=== PATIENT | male | born 1975 | race Caucasian/White ===

== ENCOUNTER 2017-01-23 13:51 | Inpatient (IN) | payer OTHER ==
[2017-01-23 16:32] VITALS: BMI 27.8
--- NOTE | 2017-01-23 17:19 | HP ---
CIWA Score - CIWA Score Nausea/Vomitin Muscle Tremors: 4-Moderate,w/Arms Extend Anxiety: 4-Mod. Anxious/Guarded Agitation: 4-Moderately Restless Paroxysmal Sweats: 1-Minimal Palms Moist Orientation: 1-Uncertain about Date Tacttile Disturbances: 2-Mild Itch/Numbness/Burn Auditory Disturbances: 0-None Visual Disturbances: 0-None Headache: 3-Moderate CIWA-Ar Total Score: 22 Admission ROS S - HPI Chief Complaint: Alcohol withdrawal symptoms Allergies/Adverse Reactions: Allergies Allergy/AdvReac Type Severity Reaction Status Date / Time No Known Allergies Allergy Verified 01/23/17 17:08 History of Present Illness: 41 years male with a long history of alcohol dependence is admitted for alcohol detox. Patient reports previous detox at [facility] [place]. Denies significant period of sobriety. Patient reports history of Hyperlipidemia, Bipolar disorder and Depression. Denies suicidal ideation at this time. - Ebola screening Have you traveled outside of the country in the last 21 days: No Have you had contact with anyone from an Ebola affected area: No Have you been sick,other than usual withdrawal symptoms: No Do you have a fever: No - Review of Systems Constitutional: Loss of Appetite, Night Sweats, Changes in sleep, Unintentional Wgt. Loss EENT: reports: Blurred Vision Respiratory: reports: Productive cough (brwnish phlegm) Cardiac: reports: No Symptoms Reported GI: reports: Nausea, Poor Appetite : reports: No Symptoms Reported Musculoskeletal: reports: Back Pain, Joint Pain, Muscle Weakness, Neck Pain, Other (upper back) Integumentary: reports: Flushing Neuro: reports: Headache, Tingling, Tremors, Weakness Endocrine: reports: Flushing Hematology: reports: No Symptoms Reported Psychiatric: reports: Mood/Affect Appropiate, Orientated x3 Other Systems: Reviewed and Negative Patient History - Patient Medical History Hx Anemia: No Hx Asthma: No Hx Chronic Obstructive Pulmonary Disease (COPD): No Hx Cancer: No Hx Cardiac Disorders: No Hx Congestive Heart Failure: No Hx Hypertension: No Hx Hypercholesterolemia: No Hx Pacemaker: No HX Cerebrovascular Accident: No Hx Seizures: No Hx Diabetes: No Hx Gastrointestinal Disorders: No Hx Liver Disease: No Hx Genitourinary Disorders: No Hx Sexually Transmitted Disorders: No Hx Renal Disease (ESRD): No Hx Thyroid Disease: No Hx Human Immunodeficiency Virus (HIV): No (Negative 2017) Hx Hepatitis C: No (Negative 2017) Hx Depression: Yes Hx Suicide Attempt: No (Denies suicidal ideation) Hx Bipolar Disorder: Yes Hx Schizophrenia: No - Patient Surgical History Past Surgical History: Yes Hx Neurologic Surgery: No Hx Cataract Extraction: No Hx Cardiac Surgery: No Hx Lung Surgery: No Hx Abdominal Surgery: No Hx Appendectomy: No Hx Cholecystectomy: No Hx Genitourinary Surgery: No Hx Orthopedic Surgery: Yes (left zigomatic fx) Anesthesia Reaction: No - PPD History Previous Implant?: Yes ([employer] [place]) Documented Results: Negative w/proof PPD to be Administered?: Yes - Reproductive History Patient is a Female of Child Bearing Age (11 -55 yrs old): No (Male) - Smoking Cessation Smoking history: Current every day smoker Have you smoked in the past 12 months: Yes Aproximately how many cigarettes per day: 20 Hx Chewing Tobacco Use: No Initiated information on smoking cessation: Yes 'Breaking Loose' booklet given: 01/23/17 - Substance & Tx. History Hx Alcohol Use: Yes (Wine) Hx Substance Use: Yes (oxycodone) Substance Use Type: Alcohol, Opiates Hx Substance Use Treatment: Yes ([facility] August-jan 21 2017) - Substances Abused Alcohol Route: Oral Frequency: Daily Amount used: 6-10 four locos Age of first use: 22 Date of Last Use: 01/22/17 Family Disease History - Family Disease History Family Disease History: Heart Disease: Father (Depression, ), Other: Father, Mother (Depression) Admission Physical Exam S - Vital Signs Vital Signs: Vital Signs - 24 hr 01/23/17 16:26 Temperature 97.1 F L Pulse Rate 82 Respiratory 20 Rate Blood Pressure 124/73 - Physical General Appearance: Yes: Moderate Distress, Tremorous, Irritable, Anxious HEENTM: Yes: EOMI, Normal Voice, AV Respiratory: Yes: Lungs Clear, Normal Breath Sounds, No Respiratory Distress Neck: Yes: Supple Breast: Yes: Breast Exam Deferred Cardiology: Yes: Regular Rhythm, Regular Rate, S1, S2 Abdominal: Yes: Normal Bowel Sounds, Soft Genitourinary: Yes: Within Normal Limits Musculoskeletal: Yes: Back pain, Muscle Pain Extremities: Yes: Tremors Neurological: Yes: Fully Oriented, Alert, Normal Mood/Affect Integumentary: Yes: Dry Lymphatic: Yes: Within Normal Limits - Diagnostic (1) Alcohol dependence with uncomplicated withdrawal Current Visit: Yes Status: Acute (2) Bipolar 1 disorder Current Visit: Yes Status: Chronic (3) Depression Current Visit: Yes Status: Chronic Cleared for Admission [facility] - Detox or Rehab [facility] Level of Care: Medically Managed Detox Regimen/Protocol: Librium S Breath Alcohol Content Breath Alcohol Content: 0 Urine Drug Screen - Results Drug Screen Negative: No Urine Drug Screen Results: TCA-Tricyclic Antidepress
[2017-01-23] MEDS ORDERED: ACETAMINOPHEN 325 MG TABLET (FP) PO PRN (17:43)
[2017-01-23] MEDS ORDERED: guaiFENesin/D-METHORPHAN HB 10 ML UNIT-DOSE CUPS PO PRN (17:43)
[2017-01-23] MEDS ORDERED: NICOTINE POLACRILEX 2 MG GUM BC PRN (17:43)
[2017-01-23] MEDS ORDERED: MAGNESIUM HYDROX 2400MG/30ML ORAL SUSPENSION 30 ML CUP PO PRN (17:43)
[2017-01-23] MEDS ORDERED: IBUPROFEN 400 MG TABLET (FP) PO PRN (17:43)
[2017-01-23] MEDS ORDERED: MENTHOL/PHENOL 1 EACH UD MM PRN (17:43)
[2017-01-23] MEDS ORDERED: hydrOXYzine PAMOATE 50 MG CAPSULE (FP) PO PRN (17:43)
[2017-01-23] MEDS ORDERED: MAG HYDROX/AL HYDROX/SIMETH 30 ML UNIT-DOSE CUP PO PRN (17:43)
[2017-01-23] MEDS ORDERED: P-EPHED 60MG/TRIPROLIDI 2.5MG TABLET PO PRN (17:43)
[2017-01-23] MEDS ORDERED: MAGNESIUM CITRATE 300 ML BOTTLE PO PRN (17:43)
[2017-01-23] MEDS ORDERED: chlordiazePOXIDE HCL 25 MG CAPSULE PO PRN (17:43)
[2017-01-23] MEDS ORDERED: LOPERAMIDE HCL 2 MG CAPSULE PO PRN (17:43)
[2017-01-23 22:12] LABS: URINE APPEARANCE CLEAR; URINE BILIRUBIN NEGATIVE (NEGATIVE); URINE BLOOD NEGATIVE (NEGATIVE); URINE COLOR YELLOW; URINE GLUCOSE (UA) NEGATIVE (NEGATIVE); URINE KETONE TRACE (NEGATIVE); URINE NITRITE NEGATIVE (NEGATIVE); URINE PROTEIN NEGATIVE (NEGATIVE); URINE UROBILINOGEN NEGATIVE mg/dL (0.2-1.0)
[2017-01-23] MEDS: THIAMINE HCL 100 MG TABLET (FP) PO SCH (22:14)
[2017-01-23] MEDS: ATORVASTATIN CA 10 MG TABLET (FP) PO SCH (22:14)
[2017-01-23] MEDS: diphenhydrAMINE HCL 50 MG CAPSULE PO PRN (22:14)
[2017-01-23] MEDS: chlordiazePOXIDE HCL 25 MG CAPSULE PO SCH (22:14)
[2017-01-24] MEDS: chlordiazePOXIDE HCL 25 MG CAPSULE PO SCH ×4 (05:31→22:12)
[2017-01-24 09:01] LABS: URINE LEUK ESTERASE Negative (NEGATIVE)
[2017-01-24 10:03] LABS: MCH 29.5 pg (25.7-33.7); MCHC 33.8 g/dl (32.0-35.9); MEAN CELL VOLUME 87.2 fl (80-96); MEAN PLT VOLUME 7.1 fl (7.5-11.1); PLATELET COUNT 297 K/MM3 (134-434); RDW 13.7 % (11.9-15.9); WHITE BLOOD COUNT 5.7 K/mm3 (4.0-10.0)
[2017-01-24] MEDS: PRENATAL VITAMINS W/ FOLIC ACID TABLET (FP) PO SCH (10:23)
[2017-01-24] MEDS: NICOTINE 14 MG/24 HOURS TOPICAL PATCH TD SCH (10:23)
[2017-01-24 10:24] LABS: ALBUMIN 3.3 g/dl (3.4-5.0); ALK PHOS 90 U/L (45-117); ANION GAP 8 (8-16); BILIRUBIN,TOTAL 0.5 mg/dL (0.2-1.0); CALCIUM 8.5 mg/dL (8.5-10.1); CO2 28 mmol/L (21-32); CREATININE 0.7 mg/dL (0.7-1.3); GLUCOSE,RANDOM 91 mg/dL (74-106); SGOT/AST 20 U/L (15-37); SGPT/ALT 35 U/L (12-78); TOT PROT 6.1 g/dl (6.4-8.2)
[2017-01-24] MEDS ORDERED: FLU VACCINE QUAD 60 MCG/0.5 ML (MDV 17-18) IM ONE (12:00)
--- NOTE | 2017-01-24 12:20 | CONSULT ---
[facility] Psychiatric Consult - Data Date of interview: 01/24/17 Admission source: [facility] Identifying data: First admission to [facility] for this 41 y/o male seeking detox treatment on for alcohol and opiate dependence.Patient is single,a father of one,homeless,unemployed and supported on food stamps. Substance Abuse History: Patient admits to an extensive history of opiate + alcohol abuse.Confirms [facility] report. Smoking history: Current every day smoker. Have you smoked in the past 12 months: Yes. Aproximately how many cigarettes per day: 20. Hx Chewing Tobacco Use: No. Initiated information on smoking cessation: Yes. 'Breaking Loose' booklet given: 01/23/17. - Substance & Tx. History. Hx Alcohol Use: Yes (Wine). Hx Substance Use: Yes (oxycodone). Substance Use Type: Alcohol, Opiates. Hx Substance Use Treatment: Yes ([facility] August-jan 21 2017). - Substances Abused. Alcohol. Route: Oral. Frequency: Daily. Amount used: 6-10 four locos. Age of first use: 22. Date of Last Use: 01/22/17 Medical History: History of facial surgery (fracture of zygomatic bone sustained in a kickboxing contest).Plate in place.Additional history of chronic back pain and dyslipidemia. Psychiatric History: Patient admits to a brief psychiatric hospitalization,five months ago,at a facility in [facility].Diagnosed with MDD and ADD.Mr Spain indicates that he used to be on psychostimulant medications years ago.Recently during his stay at [facility],he was reportedly prescribed xanax,seroquel, prozac and trazodone.Patient declines to get back on these drugs." I don't like the way they make me feel." No repprted history of suicide attempts. Physical/Sexual Abuse/Trauma History: Patient denies history of abuse. Additional Comment: Urine Drug Screen Results: TCA-Tricyclic Antidepressant.Noted. Mental Status Exam - Mental Status Exam Alert and Oriented to: Time, Place, Person Cognitive Function: Good Patient Appearance: Well Groomed Mood: Hopeful, Euthymic Affect: Appropriate, Normal Range Patient Behavior: Appropriate, Cooperative Speech Pattern: Clear Voice Loudness: Normal Thought Process: Intact, Goal Oriented Thought Disorder: Not Present Hallucinations: Denies Suicidal Ideation: Denies Homicidal Ideation: Denies Insight/Judgement: Poor Sleep: Well Appetite: Good Muscle strength/Tone: Normal Gait/Station: Normal Psychiatric Findings - Problem List ([place] 1, 2,3) (1) Alcohol dependence with uncomplicated withdrawal Current Visit: Yes Status: Acute (2) Nicotine dependence Current Visit: Yes Status: Acute (3) Substance induced mood disorder Current Visit: Yes Status: Acute - Initial Treatment Plan Initial Treatment Plan: Psychoeducation.Detoxification in progress.Mr Spain has made the decision to abstain from any psychotropic drugs other than drugs indicated for detoxification purposes.Observation.
--- NOTE | 2017-01-24 12:28 | PN ---
[facility] CIWA - CIWA Score Nausea/Vomitin-No Nausea/No Vomiting Muscle Tremors: 4-Moderate,w/Arms Extend Anxiety: 4-Mod. Anxious/Guarded Agitation: 4-Moderately Restless Paroxysmal Sweats: 1-Minimal Palms Moist Orientation: 0-Oriented Tacttile Disturbances: 3-Moderate Itch/Numb/Burn Auditory Disturbances: 0-None Visual Disturbances: 0-None Headache: 0-None Present CIWA-Ar Total Score: 16 BHS Progress Note (SOAP) Subjective: ANXIETY,NAUSEA,SWEATS,SLIGHT TREMORS. Objective: 01/24/17 12:27 Vital Signs Temperature 98.1 F 01/24/17 10:05 Pulse Rate 80 01/24/17 10:05 Respiratory Rate 18 01/24/17 10:05 Blood Pressure 145/72 01/24/17 10:05 O2 Sat by Pulse Oximetry (%) Laboratory Last Values WBC 5.7 K/mm3 (4.0-10.0) 01/24/17 07:00 RBC 4.37 M/mm3 (4.00-5.60) 01/24/17 07:00 Hgb 12.9 GM/dL (11.7-16.9) 01/24/17 07:00 Hct 38.1 % (35.4-49) 01/24/17 07:00 MCV 87.2 fl (80-96) 01/24/17 07:00 MCH 29.5 pg (25.7-33.7) 01/24/17 07:00 MCHC 33.8 g/dl (32.0-35.9) 01/24/17 07:00 RDW 13.7 % (11.9-15.9) 01/24/17 07:00 Plt Count 297 K/MM3 (134-434) 01/24/17 07:00 MPV 7.1 fl (7.5-11.1) L 01/24/17 07:00 Sodium 140 mmol/L (136-145) 01/24/17 07:00 Potassium 4.2 mmol/L (3.5-5.1) 01/24/17 07:00 Chloride 104 mmol/L (98-107) 01/24/17 07:00 Carbon Dioxide 28 mmol/L (21-32) 01/24/17 07:00 Anion Gap 8 (8-16) 01/24/17 07:00 BUN 12 mg/dL (7-18) 01/24/17 07:00 Creatinine 0.7 mg/dL (0.7-1.3) 01/24/17 07:00 Creat Clearance w eGFR > 60 (>60) 01/24/17 07:00 Random Glucose 91 mg/dL (74-106) 01/24/17 07:00 Calcium 8.5 mg/dL (8.5-10.1) 01/24/17 07:00 Total Bilirubin 0.5 mg/dL (0.2-1.0) 01/24/17 07:00 AST 20 U/L (15-37) 01/24/17 07:00 ALT 35 U/L (12-78) 01/24/17 07:00 Alkaline Phosphatase 90 U/L (45-117) 01/24/17 07:00 Total Protein 6.1 g/dl (6.4-8.2) L 01/24/17 07:00 Albumin 3.3 g/dl (3.4-5.0) L 01/24/17 07:00 Urine Color Yellow 01/23/17 21:45 Urine Appearance Clear 01/23/17 21:45 Urine pH 7.0 (5.0-8.0) 01/23/17 21:45 Ur Specific [place] 1.024 (1.001-1.035) 01/23/17 21:45 Urine Protein Negative (NEGATIVE) 01/23/17 21:45 Urine Glucose (UA) Negative (NEGATIVE) 01/23/17 21:45 Urine Ketones Trace (NEGATIVE) H 01/23/17 21:45 Urine Blood Negative (NEGATIVE) 01/23/17 21:45 Urine Nitrite Negative (NEGATIVE) 01/23/17 21:45 Urine Bilirubin Negative (NEGATIVE) 01/23/17 21:45 Urine Urobilinogen Negative mg/dL (0.2-1.0) 01/23/17 21:45 Ur Leukocyte Esterase Negative (NEGATIVE) 01/23/17 21:45 RPR Titer Nonreactive (NONREACTIVE) 01/24/17 07:00 Assessment: 01/24/17 12:27 WITHDRAWAL SX Plan: CONTINUE DETOX
[2017-01-24] MEDS: THIAMINE HCL 100 MG TABLET (FP) PO SCH (22:12)
[2017-01-24] MEDS: ATORVASTATIN CA 10 MG TABLET (FP) PO SCH (22:12)
[2017-01-24] MEDS: diphenhydrAMINE HCL 50 MG CAPSULE PO PRN (22:13)
[2017-01-25] MEDS: chlordiazePOXIDE HCL 25 MG CAPSULE PO SCH ×3 (05:34→17:06)
[2017-01-25] MEDS: NICOTINE 14 MG/24 HOURS TOPICAL PATCH TD SCH (10:11)
[2017-01-25] MEDS: PRENATAL VITAMINS W/ FOLIC ACID TABLET (FP) PO SCH (10:12)
--- NOTE | 2017-01-25 10:38 | PN ---
[facility] CIWA - CIWA Score Nausea/Vomitin-Int. Nausea w/Dry Heave Muscle Tremors: 3 Anxiety: 4-Mod. Anxious/Guarded Agitation: 3 Paroxysmal Sweats: 1-Minimal Palms Moist Orientation: 0-Oriented Tacttile Disturbances: 1-Very Mild Itch/Numbness Auditory Disturbances: 0-None Visual Disturbances: 0-None Headache: 0-None Present CIWA-Ar Total Score: 16 BHS Progress Note (SOAP) Subjective: ANXIETY,SLIGHT TREMORS,NAUSEA,FATIGUE. Objective: 01/25/17 10:37 Vital Signs Temperature 96.1 F L 01/25/17 09:00 Pulse Rate 87 01/25/17 09:00 Respiratory Rate 18 01/25/17 09:00 Blood Pressure 134/85 01/25/17 09:00 O2 Sat by Pulse Oximetry (%) Laboratory Last Values WBC 5.7 K/mm3 (4.0-10.0) 01/24/17 07:00 RBC 4.37 M/mm3 (4.00-5.60) 01/24/17 07:00 Hgb 12.9 GM/dL (11.7-16.9) 01/24/17 07:00 Hct 38.1 % (35.4-49) 01/24/17 07:00 MCV 87.2 fl (80-96) 01/24/17 07:00 MCH 29.5 pg (25.7-33.7) 01/24/17 07:00 MCHC 33.8 g/dl (32.0-35.9) 01/24/17 07:00 RDW 13.7 % (11.9-15.9) 01/24/17 07:00 Plt Count 297 K/MM3 (134-434) 01/24/17 07:00 MPV 7.1 fl (7.5-11.1) L 01/24/17 07:00 Sodium 140 mmol/L (136-145) 01/24/17 07:00 Potassium 4.2 mmol/L (3.5-5.1) 01/24/17 07:00 Chloride 104 mmol/L (98-107) 01/24/17 07:00 Carbon Dioxide 28 mmol/L (21-32) 01/24/17 07:00 Anion Gap 8 (8-16) 01/24/17 07:00 BUN 12 mg/dL (7-18) 01/24/17 07:00 Creatinine 0.7 mg/dL (0.7-1.3) 01/24/17 07:00 Creat Clearance w eGFR > 60 (>60) 01/24/17 07:00 Random Glucose 91 mg/dL (74-106) 01/24/17 07:00 Calcium 8.5 mg/dL (8.5-10.1) 01/24/17 07:00 Total Bilirubin 0.5 mg/dL (0.2-1.0) 01/24/17 07:00 AST 20 U/L (15-37) 01/24/17 07:00 ALT 35 U/L (12-78) 01/24/17 07:00 Alkaline Phosphatase 90 U/L (45-117) 01/24/17 07:00 Total Protein 6.1 g/dl (6.4-8.2) L 01/24/17 07:00 Albumin 3.3 g/dl (3.4-5.0) L 01/24/17 07:00 Urine Color Yellow 01/23/17 21:45 Urine Appearance Clear 01/23/17 21:45 Urine pH 7.0 (5.0-8.0) 01/23/17 21:45 Ur Specific [place] 1.024 (1.001-1.035) 01/23/17 21:45 Urine Protein Negative (NEGATIVE) 01/23/17 21:45 Urine Glucose (UA) Negative (NEGATIVE) 01/23/17 21:45 Urine Ketones Trace (NEGATIVE) H 01/23/17 21:45 Urine Blood Negative (NEGATIVE) 01/23/17 21:45 Urine Nitrite Negative (NEGATIVE) 01/23/17 21:45 Urine Bilirubin Negative (NEGATIVE) 01/23/17 21:45 Urine Urobilinogen Negative mg/dL (0.2-1.0) 01/23/17 21:45 Ur Leukocyte Esterase Negative (NEGATIVE) 01/23/17 21:45 RPR Titer Nonreactive (NONREACTIVE) 01/24/17 07:00 Assessment: 01/25/17 10:38 WITHDRAWAL SX Plan: CONTINUE DETOX ZOFRAN DIRECTED
--- NOTE | 2017-01-25 12:50 | EKG ---
Test Reason : Blood Pressure : / mmHG Vent. Rate : 055 BPM Atrial Rate : 055 BPM P-R Int : 152 ms QRS Dur : 098 ms QT Int : 440 ms P-R-T Axes : 052 045 037 degrees QTc Int : 420 ms SINUS BRADYCARDIA OTHERWISE NORMAL ECG NO PREVIOUS ECGS AVAILABLE Confirmed by ZO BELL, WENDY ([id number]) on 01/25/2017 12:49:47 PM Referred By: Confirmed By:WENDY PATHAK MD
--- NOTE | 2017-01-25 17:14 | PN ---
GI Progress Note Note: Psychiatry Attending's note : Approached by patient. Issue : insomnia. Mr Spain is requesting ambien. Effective in the past.Well tolerated. Patient is informed of sleep hygiene. Ambien 10 mg po hs prn.Ordered. Side effects/benefits discussed with patient. Agrees with careplan.
[2017-01-25] MEDS: ZOLPIDEM TARTRATE 10 MG TABLET (PARK CARE ONLY) PO PRN (22:07)
[2017-01-25] MEDS: chlordiazePOXIDE 5 MG CAPSULE PO SCH (22:07)
[2017-01-25] MEDS: THIAMINE HCL 100 MG TABLET (FP) PO SCH (22:07)
[2017-01-25] MEDS: ATORVASTATIN CA 10 MG TABLET (FP) PO SCH (22:07)
[2017-01-26] MEDS: chlordiazePOXIDE 5 MG CAPSULE PO SCH ×3 (05:48→17:25)
[2017-01-26] MEDS ORDERED: ONDANSETRON *ODT* 4 MG TABLET SL PRN (10:11)
[2017-01-26] MEDS: PRENATAL VITAMINS W/ FOLIC ACID TABLET (FP) PO SCH (10:38)
[2017-01-26] MEDS: NICOTINE 14 MG/24 HOURS TOPICAL PATCH TD SCH (10:38)
--- NOTE | 2017-01-26 12:51 | PN ---
BHS Progress Note (SOAP) Subjective: Tremors, Nausea, H/A, Interrupted Sleep, Body Aches, Sweating. Objective: PT. A & O X 3, OBSERVED AMBULATING ON UNIT. NO ACUTE DISTRESS. 01/26/17 12:49 Vital Signs Temperature 97.7 F 01/26/17 09:31 Pulse Rate 103 H 01/26/17 09:31 Respiratory Rate 18 01/26/17 09:31 Blood Pressure 113/62 01/26/17 09:31 O2 Sat by Pulse Oximetry (%) Laboratory Tests 01/23/17 01/24/17 01/24/17 21:45 07:00 07:00 WBC 5.7 RBC 4.37 Hgb 12.9 Hct 38.1 MCV 87.2 MCH 29.5 MCHC 33.8 RDW 13.7 Plt Count 297 MPV 7.1 L Sodium 140 Potassium 4.2 Chloride 104 Carbon Dioxide 28 Anion Gap 8 BUN 12 Creatinine 0.7 Creat Clearance w eGFR > 60 Random Glucose 91 Calcium 8.5 Total Bilirubin 0.5 AST 20 ALT 35 Alkaline Phosphatase 90 Total Protein 6.1 L Albumin 3.3 L Urine Color Yellow Urine Appearance Clear Urine pH 7.0 Ur Specific [place] 1.024 Urine Protein Negative Urine Glucose (UA) Negative Urine Ketones Trace H Urine Blood Negative Urine Nitrite Negative Urine Bilirubin Negative Urine Urobilinogen Negative Ur Leukocyte Esterase Negative RPR Titer 01/24/17 07:00 WBC RBC Hgb Hct MCV MCH MCHC RDW Plt Count MPV Sodium Potassium Chloride Carbon Dioxide Anion Gap BUN Creatinine Creat Clearance w eGFR Random Glucose Calcium Total Bilirubin AST ALT Alkaline Phosphatase Total Protein Albumin Urine Color Urine Appearance Urine pH Ur Specific [place] Urine Protein Urine Glucose (UA) Urine Ketones Urine Blood Urine Nitrite Urine Bilirubin Urine Urobilinogen Ur Leukocyte Esterase RPR Titer Nonreactive LABS NOTED. Assessment: 01/26/17 12:49 WITHDRAWAL SYMPTOMS. Plan: CONTINUE DETOX. PRN ZOFRAN SL FOR NAUSEA / VOMITING.
[2017-01-26] MEDS: ATORVASTATIN CA 10 MG TABLET (FP) PO SCH (22:15)
[2017-01-26] MEDS: THIAMINE HCL 100 MG TABLET (FP) PO SCH (22:15)
[2017-01-26] MEDS: ZOLPIDEM TARTRATE 10 MG TABLET (PARK CARE ONLY) PO PRN (22:15)
[2017-01-26] MEDS: chlordiazePOXIDE HCL 10 MG CAPSULE PO SCH (22:15)
[2017-01-27] MEDS: chlordiazePOXIDE HCL 10 MG CAPSULE PO SCH (06:11)
[2017-01-27 06:38] VITALS: BP 120/62; PULSE 73; TEMP 97.7
--- NOTE | 2017-01-27 14:17 | DS ---
[facility] Detox Discharge Summary Admission Date: 01/23/17 Discharge Date: 01/27/17 - History Present History: Alcohol Dependence Additional Comments: PATIENT GOING TO [facility] ([place], [place] FOR AFTERCARE. PATIENT WAS DISCHARGED FROM DETOX UNIT IN STABLE MEDICAL CONDITION. Pertinent Past History: Depression, Bipolar Disorder, Nicotine Dependence. - Physical Exam Results Vital Signs: Vital Signs Temperature 97.7 F 01/27/17 06:35 Pulse Rate 73 01/27/17 06:35 Respiratory Rate 18 01/27/17 06:35 Blood Pressure 120/62 01/27/17 06:35 O2 Sat by Pulse Oximetry (%) Pertinent Admission Physical Exam Findings: WITHDRAWAL SYMPTOMS. Laboratory Tests 01/23/17 01/24/17 01/24/17 21:45 07:00 07:00 WBC 5.7 RBC 4.37 Hgb 12.9 Hct 38.1 MCV 87.2 MCH 29.5 MCHC 33.8 RDW 13.7 Plt Count 297 MPV 7.1 L Sodium 140 Potassium 4.2 Chloride 104 Carbon Dioxide 28 Anion Gap 8 BUN 12 Creatinine 0.7 Creat Clearance w eGFR > 60 Random Glucose 91 Calcium 8.5 Total Bilirubin 0.5 AST 20 ALT 35 Alkaline Phosphatase 90 Total Protein 6.1 L Albumin 3.3 L Urine Color Yellow Urine Appearance Clear Urine pH 7.0 Ur Specific [place] 1.024 Urine Protein Negative Urine Glucose (UA) Negative Urine Ketones Trace H Urine Blood Negative Urine Nitrite Negative Urine Bilirubin Negative Urine Urobilinogen Negative Ur Leukocyte Esterase Negative RPR Titer 01/24/17 07:00 WBC RBC Hgb Hct MCV MCH MCHC RDW Plt Count MPV Sodium Potassium Chloride Carbon Dioxide Anion Gap BUN Creatinine Creat Clearance w eGFR Random Glucose Calcium Total Bilirubin AST ALT Alkaline Phosphatase Total Protein Albumin Urine Color Urine Appearance Urine pH Ur Specific [place] Urine Protein Urine Glucose (UA) Urine Ketones Urine Blood Urine Nitrite Urine Bilirubin Urine Urobilinogen Ur Leukocyte Esterase RPR Titer Nonreactive LABS NOTED. - Treatment Hospital Course: Detox Protocol Followed, Detoxed Safely, Responded well, Discharged Condition Good, Rehab Referral Accepted Patient has Accepted a Rehab Referral to: [facility] ([place], [place] - Medication Discharge Medications: Ambulatory Orders Fluoxetine HCl [Prozac -] 20 mg PO DAILY 01/23/17 Simvastatin [Zocor] 10 mg PO HS 10/30/17 Trazodone HCl [Desyrel -] 100 mg PO HS 01/23/17 - Diagnosis (1) Alcohol dependence with uncomplicated withdrawal Status: Acute (2) Nicotine dependence Status: Acute Qualifiers: Nicotine product type: cigarettes Substance use status: uncomplicated Qualified Code(s): F17.210 - Nicotine dependence, cigarettes, uncomplicated; F17.210 - Nicotine dependence, cigarettes, uncomplicated (3) Substance induced mood disorder Status: Acute (4) Bipolar 1 disorder Status: Chronic (5) Depression Status: Chronic Qualifiers: Depression Type: unspecified Qualified Code(s): F32.9 - Major depressive disorder, single episode, unspecified; F32.9 - Major depressive disorder, single episode, unspecified; F32.9 - Major depressive disorder, single episode, unspecified - AMA Did Patient Leave Against Medical Advice: No
== END 2017-01-27 09:19 | disposition home or self-care (01) | DRG 775 ==
LOC: YASAS 13:51 → Y3N 19:18
PROVIDERS: ADMIT Internal Medicine; ATTEND Internal Medicine
PROC: HZ2ZZZZ Detoxification Services for Substance Abuse Treatment (ICD-10-PCS; principal; 2017-01-23)
DX: F10.230 Alcohol dependence with withdrawal, uncomplicated (principal); F17.210 Nicotine dependence, cigarettes, uncomplicated; F31.89 Other bipolar disorder; F19.24 Other psychoactive substance dependence with psychoactive substance-induced mood disorder; Z59.0 Homelessness
CPT/HCPCS: 36415; 80053; 81003; 85027; 86593; 90688; 93005; 93010; G0008